=== PATIENT | female | born 1955 | race Hispanic/Latino ===

== ENCOUNTER 2017-05-06 15:34 | Emergency (ER) | payer MEDICARE ==
[2017-05-06 15:44] VITALS: BMI 18.8
--- NOTE | 2017-05-06 15:54 | ED PDOC ---
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 I was informed by Avani Woodall, [facility] of Nursing, and Noemí Wynne, Risk Management, that patient was refusing medical care. She would not register. She would not accept our staff to take vital signs. She would not allow a physician to examine her but that she just wanted to go home. I went to the ED as an cyber security administrator to try to convince Dr. Amanda Delgado to be examined by me or another provider. She would not agree to vitals signs, to be registered or to be evaluated by me. She is AAOx3. She is speaking in clear sentences at her baseline. She has capacity to make decisions. She is being asked to be wheeled out of the ED and has agreed to consider a taxi home. Nursing has also called her ex- Dr. Fernandez Delgado who came to try to convince her but she would not agree to further care. Nursing will find the means for her to get home safely. I encouraged the patient again to reconsider after offering some time for her to think about it and she still refused.
[2017-05-06 16:13] VITALS: BP 148/97; PULSE 96; RESP 18; O2SAT 98
--- NOTE | 2017-05-06 16:22 | ED PDOC ---
Arrival/HPI - General Chief Complaint: Trauma Time Seen by Provider: 05/06/17 15:44 Historian: Patient - History of Present Illness Narrative History of Present Illness (Text): 05/06/17 16:22 61 yo female, h/o MS, presents to the ED because of a fall with head injury. Initially on arrival she would not sign to be examined or allow anyone to examine her. See initial progress note written by me. She then agreed to have me examine and treat her. Patient states she was in the hospital doctor's lounge and when she was reaching for water she missed her step hitting her head on the paper towel dispenser. She denies any LOC. She has mild pain to the laceration but no headache she states. She denies any neck pain. No numbness or weakness. She states she has no other injuries. She is able to walk at baseline considering her EMS. Tetanus is up to date. Past Medical History - Provider Review Nursing Documentation Reviewed: Yes - Infectious Disease Hx of Infectious Diseases: None - Tetanus Immunization Tetanus Immunization: Unknown - Cardiac Hx Cardiac Disorders: (unknown) - Pulmonary Hx Respiratory Disorders: (unknown) - Neurological Hx Neurological Disorder: (MS) Hx Seizures: Yes - HEENT Hx HEENT Disorder: (unknown) - Renal Hx Renal Disorder: (unknown) - Endocrine/Metabolic Hx Endocrine Disorders: (unknown) - Hematological/Oncological Hx Blood Disorders: (unknown) - Integumentary Hx Dermatological Disorder: (unknown) - Musculoskeletal/Rheumatological Hx Musculoskeletal Disorders: Yes (Multiple Sclorsis ) Hx Falls: No Other/Comment: hx of multiple sclerosis as per patient - Gastrointestinal Hx Gastrointestinal Disorders: (unknown) - Genitourinary/Gynecological Hx Genitourinary Disorders: (unknown) - Psychiatric Hx Depression: No Hx Emotional Abuse: No Hx Physical Abuse: No Hx Substance Use: No - Past Surgical History Past Surgical History: Unable to Obtain - Suicidal Assessment Feels Threatened In Home Enviroment: No Family/Social History - Physician Review Nursing Documentation Reviewed: Yes Family/Social History: Unknown Family HX Smoking Status: Never Smoked Hx Alcohol Use: No Hx Substance Use: No Hx Substance Use Treatment: No Allergies/Home Meds Allergies/Adverse Reactions: Allergies No Known Allergies Allergy (Verified 05/06/17 15:59) Home Medications: Home Meds Medication Instructions Recorded Confirmed Unobtainable 01/19/16 05/06/17 Review of Systems - Review of Systems Constitutional: Normal Eyes: Normal ENT: Normal Respiratory: Normal Cardiovascular: Normal Gastrointestinal: Normal Genitourinary Female: Normal Musculoskeletal: Normal Skin: Laceration Neurological: Normal. absent: Headache, Focal Weakness, Gait Changes, Speech Changes Endocrine: Normal Hemo/Lymphatic: Normal Psychiatric: Normal Physical Exam Vital Signs Reviewed: Yes Vital Signs Pulse Resp BP Pulse Ox 05/06/17 16:11 96 H 18 148/97 H 98 Temperature: Other (refused) Blood Pressure: Normal Pulse: Regular Respiratory Rate: Normal Appearance: Positive for: Well-Appearing, Non-Toxic, Comfortable Pain Distress: None Mental Status: Positive for: Alert and Oriented X 3 - Systems Exam Head: Present: Normocephalic, Contusion (mild), Swelling (mild), Laceration (3 cm laceration to the right forehead; no muscle involvement) Pupils: Present: PERRL Extroacular Muscles: Present: EOMI. No: Gaze Palsy, Entrapment Conjunctiva: Present: Normal Ears: Present: Normal, NORMAL TM Mouth: Present: Moist Mucous Membranes Pharnyx: Present: Normal. No: ERYTHEMA, EXUDATE Nose (External): Present: Atraumatic Nose (Internal): Present: Normal Inspection Neck: Present: Normal Range of Motion Respiratory/Chest: Present: Clear to Auscultation, Good Air Exchange. No: Respiratory Distress, Accessory Muscle Use Cardiovascular: Present: Regular Rate and Rhythm, Normal S1, S2. No: Murmurs Abdomen: Present: Normal Bowel Sounds. No: Tenderness, Distention, Peritoneal Signs Back: Present: Normal Inspection Upper Extremity: Present: Normal Inspection. No: Cyanosis, Edema Lower Extremity: Present: Normal Inspection. No: Edema Neurological: Present: GCS=15, CN II-XII Intact, Speech Normal, Motor Func Grossly Intact (5/5 MS), Normal Sensory Function (equal b/l), Gait Normal ( baseline for her MS), Memory Normal Skin: Present: Warm, Dry, Normal Color. No: Rashes Psychiatric: Present: Alert, Oriented x 3, Normal Insight, Normal Concentration , Normal Affect Medical Decision Making ED Course and Treatment: 05/06/17 16:29 61 yo female with h/o MS presents to the ED after a mechanical fall with head injury and laceration -- Tetanus up to date -- Patient refusing pain medication because she states she has no pain -- Stitches were recommended but patient was adamently refusing stitches and would rather leave the wound open. She agreed to dermabond. Procedure Note: Wound was irrigated and cleaned thoroughly with Normal Saline. Trace and very minimal bleeding. Dermabond was placed across the laceration with great approximation. The dermabond solution dried and the laceration appeared to adhese well. Patient agreed to follow up with her primary care doctor. She was also advised to return to the ED if symptoms worsen or any other concern. Although she did not present with a seizure being her history of seizures she was reminded that she should not be driving until clearly by her Neurologist. Disposition/Present on Arrival - Present on Arrival Any Indicators Present on Arrival: No History of DVT/PE: No History of Uncontrolled Diabetes: No Urinary Catheter: No History of Decub. Ulcer: No History Surgical Site Infection Following: None - Disposition Have Diagnosis and Disposition been Completed?: Yes Diagnosis: Multiple sclerosis, Laceration, Head injury Disposition: HOME/ ROUTINE Disposition Time: 16:19 Patient Plan: Discharge Patient Problems: Current Active Problems Problem Status Onset Head injury Acute Laceration Acute Multiple sclerosis Acute Condition: IMPROVED Discharge Instructions (ExitCare): Head Injury (ED) Additional Instructions: Ms Delgado, thank you for letting us take care of you today. Your provider was Dr. Rosales. You were treated for Head Injury, Laceration. The emergency medical care you received today was directed at your acute symptoms. If you were prescribed any medication, please fill it and take as directed. It may take several days for your symptoms to resolve. Return to the Emergency Department if your symptoms worsen, do not improve, or if you have any other problems. Please contact your doctor or call one of the physicians/clinics you have been referred to that are listed on the Patient Visit Information form that is included in your discharge packet. Bring any paperwork you were given at discharge with you along with any medications you are taking to your follow up visit. Our treatment cannot replace ongoing medical care by a primary care provider (PCP) outside of the emergency department. Thank you for allowing the [facility] team to be part of your care today. If you had an X-Ray or CT scan: A Radiologist will review the ED reading if any change in treatment is needed we will contact you. If you had a blood, urine, or wound culture: It will take several days for the results, if any change in treatment is needed we will contact you. If you had an STI test: It will take 48 hours for the results. Please call after 1 week if you have not heard back. Referrals: [facility] Profile Req, [Family Provider] - Follow up with primary
== END 2017-05-06 16:35 | disposition home or self-care (01) ==
LOC: ED 15:34
DX: S09.90XA Unspecified injury of head, initial encounter (principal); S01.81XA Laceration without foreign body of other part of head, initial encounter; X58.XXXA Exposure to other specified factors, initial encounter; G35 Multiple sclerosis